=== PATIENT | female | born 1960 | race Asian ===

== ENCOUNTER 2020-10-19 22:57 | Emergency (ER) | payer BC ==
[~2020-10-19] VITALS: Ht 162.6 cm; Wt 59.0 kg
--- NOTE | 2020-10-19 23:11 | NUR ---
ED Nurse Note: Patient came in the ED with laceration to left hand 5th digit. patient reports a broken jar cut the tip of the 5th digit. patient is crying pain is 10/10. patient reports no foreign body in the wound. pressure dressing applied. pt is stable.
[2020-10-19] MEDS ORDERED: Lidocaine 1%/ 10mg/ml/EPI 0.01mg/ml 20ml INJ ONE (23:36)
--- NOTE | 2020-10-19 23:41 | Emergency Room Report ---
History of Present Illness General Chief Complaint: Laceration Source: Patient Present Illness HPI Is a 60-year-old female who is right-hand dominant. She presents with chief complaint of laceration to her left fifth finger. She was opening a jar of kimchi and it broke. The glass sliced off the tip of her left fifth finger. This occurred just prior to arrival. Bleeding and 8 out of 10 pain. Worse with movement and pressure. Better with rest. No other injury. Allergies: Coded Allergies: No Known Allergies (Unverified , 10/19/20) COVID-19 Screening Contact w/high risk pt: No Experienced COVID-19 symptoms?: No COVID-19 Testing performed [employer] AIDE: No Patient History Past Medical History: see triage record, old chart reviewed Past Surgical History: none Pertinent Family History: none Social History: Denies: smoking Now: No Immunizations: other Reviewed Nursing Documentation: PMH: Agreed; PSxH: Agreed Review of Systems Eye: Denies: eye pain, blurred vision ENT: Denies: ear pain, nose congestion, throat swelling Respiratory: Denies: cough, shortness of breath Cardiovascular: Denies: chest pain, palpitations Gastrointestinal: Denies: abdominal pain, diarrhea, nausea, vomiting Musculoskeletal: Denies: back pain, joint pain Skin: Denies: rash Neurological: Denies: headache, numbness Endocrine: Denies: increased thirst, increased urine Hematologic/Lymphatic: Denies: easy bruising All Other Systems: negative except mentioned in HPI Physical Exam Vital Signs Date Time Temp Pulse Resp B/P (MAP) Pulse Ox O2 Delivery O2 Flow Rate FiO2 10/19/20 23:10 98.2 67 18 120/59 (79) 96 Room Air Vitals normal Sp02 EP Interpretation: reviewed, normal General Appearance: well appearing, no apparent distress, alert Head: normocephalic, atraumatic Eyes: bilateral eye PERRL, bilateral eye EOMI ENT: hearing grossly normal, normal pharynx Neck: full range of motion, supple, no meningismus Respiratory: chest non-tender, lungs clear, normal breath sounds Cardiovascular #1: regular rate, rhythm, no murmur Gastrointestinal: normal bowel sounds, non tender, no mass, no organomegaly, no bruit, non-distended Musculoskeletal: back normal, normal range of motion, gait/station normal, ot her - Left fifth finger: There is complete skin avulsion of the pad measuring about 2 cm. Actively oozing. No foreign body. Psychiatric: mood/affect normal Procedures Additional Procedure Procedure Narrative Procedure: Laceration repair Indication: Skin avulsion Description: After the wound was irrigated and cleaned. I placed a gauze with 1% lidocaine with epinephrine. Afterward I placed Surgicel on it and put a pressure dressing over it. Bleeding controlled. Patient tolerated procedure without any problem. No complication. Medical Decision Making Diagnostic Impression: Primary Impression: Laceration ER Course Patient with skin avulsion. Unfortunately nothing to be sutured in his wound is gaping. Bleeding controlled. Will discharge home with antibiotics and close follow-up. Last Vital Signs Date Time Temp Pulse Resp B/P (MAP) Pulse Ox O2 Delivery O2 Flow Rate FiO2 10/19/20 23:10 98.2 67 18 120/59 (79) 96 Room Air Status: improved Disposition: HOME, SELF-CARE Condition: Stable Scripts Cephalexin* (KEFLEX*) 500 Mg Capsule 500 MG ORAL TID, #21 CAP Prov: Que Vidal MD 10/20/20 Referrals: NOT CHOSEN IPA/,REFERRING (PCP) Patient Instructions: Nonsutured Laceration Care Additional Instructions: Keep wound clean. hold pressure if bleeding. Follow-up in 2 days for recheck. Return if worse. Que Vidal MD Oct 19, 2020 23:41
[2020-10-19] MEDS ORDERED: Lidocaine 1% 10mg/ml/Epi 0.005mg/ml 10ml INJ ONE (23:45)
[2020-10-19] MEDS ORDERED: Surgicel 4in x 8in TOPIC ONE (23:45)
[2020-10-19] MEDS ORDERED: Tylenol #3 tab (300mg/30mg) ORAL ONE (23:45)
--- NOTE | 2020-10-19 23:47 | NUR ---
ED Nurse Note: Lido 1%/Epi 0.01 administered by BOBO Ríos MD.
[2020-10-20 00:10] VITALS: BP 120/59
[2020-10-20] MEDS ORDERED: CEPHALEXIN500 MG ORAL (00:22)
[2020-10-20] MEDS ORDERED: Lidocaine 1%/ 10mg/ml/EPI 0.01mg/ml 20ml INJ ONE (00:30)
--- NOTE | 2020-10-20 00:30 | NUR ---
ER DISCHARGE NOTE: Patient is cleared to be discharged per ERMD, pt is aox4, on room air, with stable vital signs. pt was given dc and prescription instructions, pt was able to verbalize understanding, pt id band removed without complications. pt is able to ambulate with steady gait. pt took all belongings. Provided pt with a work note for three days.
== END 2020-10-20 00:36 | disposition home or self-care (01) ==
LOC: EMR 23:16
DX: S61.217A Laceration without foreign body of left little finger without damage to nail, initial encounter (principal); W25.XXXA Contact with sharp glass, initial encounter; Y93.89 Activity, other specified; Y92.9 Unspecified place or not applicable
CPT/HCPCS: 99282

== ENCOUNTER 2020-10-22 09:12 | Emergency (ER) | payer BC ==
[~2020-10-22] VITALS: Ht 162.6 cm; Wt 61.2 kg
[~2020-10-22 09:12] MED LIST: CEPHALEXIN500 MG ORAL
--- NOTE | 2020-10-22 09:36 | NUR ---
ED Nurse Note:pt stated she is here for a wound check. she cut her finger last Thursday. soaking pt's finger in normal saline. assisting pt with trying to get it off. Addendum: 10/22/20 at 1008 by FLIP pt would tell this RN no when trying to help get bandage off. she would pull her and away. attempted to make suggestions on easier ways of taking it off, pt not taking directions well. pt has scissors and tweezers at the bedside to use to get bandage off
--- NOTE | 2020-10-22 09:54 | NUR ---
ED Nurse Note:pt continues to attempt to get dressing off finger. ERMD in room to assess finger, pt would not let him have her hand, stating it hurts. MD informed her that she needed to let the finger soak and not take it in and out. pt became visibly upset and asked the ERMD if he was a nurse. He identified himself as the MD and she then asked for a different dr. Dr stated that he was the only dr. pt stated she must have come to the wrong place for help. MD left room and pt stated she wanted to leave and go somewhere else, that this dr wasn't very compassionate. pt requested MD's name and was given it. pt signed AMA, finger wrapped up and pt left.
--- NOTE | 2020-10-22 09:59 | NUR ---
ED Nurse Note:unable to finish assessment on pt due to her leaving AMA
[2020-10-22 10:15] VITALS: BP 120/64
== END 2020-10-22 10:00 | disposition left against medical advice (07) ==
LOC: EMR 09:53
DX: S61.412D Laceration without foreign body of left hand, subsequent encounter (principal); X58.XXXD Exposure to other specified factors, subsequent encounter; Z53.29 Procedure and treatment not carried out because of patient's decision for other reasons
CPT/HCPCS: 99281